=== PATIENT | female | born 1950 | race Caucasian/White ===

== ENCOUNTER → 2020-07-01 | Outpatient (CLI) | payer MEDICARE, BC ==
[~2020-07-01] MED LIST: AMOXICILLIN500 M1 PO; AZITHROMYCIN500 MG PO; BETAPACE 80MG T80 MG PO; BROMPHENIR-PSE118 ML PO; CLEOCIN HCL300 MG PO; DEXAMETHASONE1 MG PO; OMNICEF 300 MG300 MG PO; PROTONIX 40 MG40 M1 PO; SYNTHROID112 MCG PO; TRICOR145 MG PO; VITAMIN B-121000 MCG PO; VITAMIN C500 MG PO; VITAMIN D 40400 UNIT PO; ZITHROMAX250 MG PO
== END ==
LOC: LAB 14:11
DX: E03.9 Hypothyroidism, unspecified (principal)
CPT/HCPCS: 36415; 84443

== ENCOUNTER → 2020-12-15 | Outpatient (CLI) | payer MEDICARE, BC | LOC: ECHO 11-04 09:00 → HEART 5 10:53 | DX: I48.91 Unspecified atrial fibrillation (principal); I07.1 Rheumatic tricuspid insufficiency | CPT/HCPCS: 93306 ==

== ENCOUNTER → 2021-11-11 | Outpatient (CLI) | payer MEDICARE, BC | LOC: HEART 5 09:46 | DX: R06.02 Shortness of breath (principal) | CPT/HCPCS: 94060; 94729 ==